=== PATIENT | male | born 1960 | race Caucasian/White ===

== ENCOUNTER 2018-06-11 09:15 | Emergency (ER) | payer BC ==
[~2018-06-11] VITALS: Ht 170.2 cm; Wt 84.1 kg
[2018-06-11 09:25] VITALS: Ht 170.2 cm; Wt 84.1 kg
[2018-06-11] MEDS ORDERED: FAMOTIDINE 20 MG INJ IV STA (09:25)
[2018-06-11] MEDS ORDERED: LIDOCAINE/MYLANTA 40 ML BTL PO STA (09:25)
[2018-06-11] MEDS ORDERED: ASPIRIN 81 MG TAB PO STA (09:25)
[2018-06-11] MEDS ORDERED: NITROGLYCERIN (SL) 0.4 MG TAB SL ONE (09:30)
[2018-06-11] MEDS ORDERED: ATEN50TA PO (09:52)
[2018-06-11] MEDS ORDERED: ASPI-903 PO (09:52)
[2018-06-11] MEDS ORDERED: LOSA1TAB28 PO (09:52)
--- NOTE | 2018-06-11 09:56 | ERD ---
ER Documentation Chief Complaint Chief Complaint AP WITH HTN HPI 58-year-old male history of hypertension is compliant with blood pressure medications who presents with epigastric abdominal pain. He states that last night after eating fried potatoes late at night he started to have epigastric abdominal discomfort. He also noted associated cramping of his left upper extremity. He states the symptoms have persisted through the night. He also notes his blood pressures in the 200 range. He denies any mid back pain, no migratory pain and no pain out of proportion. He denies any headache or vision changes. No chest pain or chest pressure. No nausea vomiting or diarrhea or constipation. During the patient's encounter translation services were utilized Language: Aremenian Source: In person ROS All systems reviewed and are negative except as per history of present illness. Medications Home Meds Active Scripts Famotidine* (Pepcid*) 20 Mg Tablet, 20 MG PO BID for 4 Days, TAB Prov:KRISTA DAUGHERTY MD 06/11/18 Reported Medications Losartan-Hydrochlorothiazide (Losartan-HCTZ) 100-12.5 Mg Tab, 1 TAB PO DAILY, TAB 06/11/18 Aspirin* (Aspirin* Chew) 81 Mg Tab.chew, 81 MG PO DAILY, TAB.CHEW 06/11/18 Atenolol* (Atenolol*) 50 Mg Tablet, 50 MG PO DAILY, #30 TAB 06/11/18 Allergies Allergies: Coded Allergies: No Known Allergy (Unverified , 06/11/18) PMhx/Soc Hx Alcohol Use: No Hx Substance Use: No Hx Tobacco Use: No Smoking Status: Never smoker FmHx Family History: No diabetes Physical Exam Vitals Vital Signs Date Temp Pulse Resp B/P (MAP) Pulse Ox O2 O2 Flow FiO2 Time Delivery Rate 06/11/18 68 18 165/85 99 Room Air 11:53 (111) 06/11/18 66 18 159/87 99 Room Air 11:50 (111) 06/11/18 64 20 197/91 99 Room Air 09:39 (126) 06/11/18 Nasal 2 09:30 Cannula 06/11/18 98.9 68 18 232/100 99 09:25 (144) Physical Exam General: Well developed, well nourished, no acute distress Head: Normocephalic, atraumatic. Eyes: Pupils equally reactive, EOM intact ENT: Moist mucous membranes Neck: Supple, no lymphadenopathy Respiratory: Lungs clear bilaterally, no distress Cardiovascular: RRR, no murmurs, rubs, or gallops Abdominal: Soft, non-tender, non-distended, no peritoneal signs, no pulsatile mass : Deferred MSK: No edema, no unilateral swelling, 5/5 strength, no pulse deficits Neurologic: Alert and oriented, moving all extremities, normal speech, no focal weakness, no cerebellar signs Skin: No rash Psych: Normal mood Result Diagram: 06/11/18 0932 06/11/18 0932 Results 24 hrs Laboratory Tests Test 06/11/18 09:32 06/11/18 12:30 White Blood Count 8.6 10^3/ul Red Blood Count 4.33 10^6/ul Hemoglobin 12.7 g/dl Hematocrit 37.0 % Mean Corpuscular Volume 85.5 fl Mean Corpuscular Hemoglobin 29.3 pg Mean Corpuscular Hemoglobin Concent 34.3 g/dl Red Cell Distribution Width 11.4 % Platelet Count 326 10^3/UL Mean Platelet Volume 10.4 fl Immature Granulocytes % 0.600 % Neutrophils % 63.3 % Lymphocytes % 21.1 % Monocytes % 9.5 % Eosinophils % 5.4 % Basophils % 0.1 % Nucleated Red Blood Cells % 0.0 /100WBC Immature Granulocytes # 0.050 10^3/ul Neutrophils # 5.5 10^3/ul Lymphocytes # 1.8 10^3/ul Monocytes # 0.8 10^3/ul Eosinophils # 0.5 10^3/ul Basophils # 0.0 10^3/ul Nucleated Red Blood Cells # 0.0 10^3/ul Sodium Level 139 mmol/L Potassium Level 4.4 mmol/L Chloride Level 102 mmol/L Carbon Dioxide Level 29 mmol/L Anion Gap 8 Blood Urea Nitrogen 13 mg/dl Creatinine 0.74 mg/dl Est Glomerular Filtrat Rate mL/min > 60 mL/min Glucose Level 135 mg/dl Calcium Level 9.4 mg/dl Total Bilirubin 0.5 mg/dl Direct Bilirubin 0.00 mg/dl Indirect Bilirubin 0.5 mg/dl Aspartate Amino Transf (AST/SGOT) 40 IU/L Alanine Aminotransferase (ALT/SGPT) 90 IU/L Alkaline Phosphatase 128 IU/L Troponin I < 0.012 ng/ml < 0.012 ng/ml Total Protein 7.4 g/dl Albumin 4.0 g/dl Globulin 3.40 g/dl Albumin/Globulin Ratio 1.17 Lipase 118 U/L Current Medications Medications Dose Sig/Adi Start Time Status Last (Trade) Ordered Route PRN Stop Time Admin Dose Reason Admin Aspirin 162 mg ONCE STAT 06/11/18 DC 06/11/18 (Aspirin) PO 09:25 09:45 06/11/18 09:28 Famotidine 20 mg ONCE STAT 06/11/18 DC 06/11/18 (Pepcid Iv) IV 09:25 09:44 06/11/18 09:28 40 ml ONCE STAT 06/11/18 DC 06/11/18 Miscellaneous PO 09:25 09:45 Medication 06/11/18 (Gi Cocktail 09:28 (2)) 1 tab ONCE ONCE 06/11/18 DC 06/11/18 Nitroglycerin SL 09:30 09:45 06/11/18 (Nitroglyceri 09:31 n (Sl Tab) 0.4 Mg) Procedures/MDM EKG, MONITORS, & DIAGNOSTIC IMAGING: EKG: I reviewed and interpreted a 12-lead EKG. Rhythm: Normal sinus rhythm ST Changes: No contiguous ST segment elevations T waves: No contiguous T wave inversions Impression: [No evidence of acute cardiac ischemia] Repeat EKG: EKG: I reviewed and interpreted a 12-lead EKG. Rhythm: Normal sinus rhythm ST Changes: No contiguous ST segment elevations T waves: No contiguous T wave inversions Impression: [No evidence of acute cardiac ischemia] Chest x-ray: I reviewed and interpreted a 1 view of the chest Mediastinum: No enlargement Cardiac silhouette: No cardiomegaly Airspace: Clear lung krishnan bilaterally without evidence of pneumothorax Bones: No evidence of fracture LAB INTERPRETATION: * Trop neg x 2 MEDICAL DECISION MAKING: The patient's history, physical exam and clinical presentation is concerning for possible cardiogenic etiology and acute coronary syndrome. However, his history fits more likely with GI process given postprandial symptoms after late fried food. The patient's blood pressure is significantly elevated but he denies any migratory pain. His blood pressure is improving. His clinical exam is not consistent with acute aortic dissection. His lung his chest x-ray shows normal mediastinum no indication for CTA of the chest. While I have a higher suspicion for GI process the patient is experiencing some arm discomfort which raises the concern for cardiac etiology warranting a workup. Based on the patient's clinical exam and history and risk factors, I have a much lower clinical concern for pulmonary embolism, acute aortic dissection, pne umothorax, pneumonia, cardiac tamponade HEART Score: 3 MACE Rate: 1.7% Shared Decision Making: We had a conversation regarding risk stratification, MACE rate, and the risks, benefits, alternatives of disposition planning options. Disposition planning: The patient adamantly does not want to be admitted. We discussed the risks involved including heart attack and cardiac arrest. The patient is agreeable to a 3-hour delta troponin which does fit in line with the HEART Pathway for early discharge in acute chest pain. ER COURSE: * ASA, NTG, and GI cocktail provided * Symptoms are improved. * Serial troponin is negative x2 * At this point the patient prefers discharge. He understands the risks involved. He understands my recommendation for hospitalization. He understands that he is leaving AGAINST MEDICAL ADVICE. Based on this understanding I do not feel strongly the patient feels that documentation. He is able to verbalize back to me the risk benefits and alternatives and has received serial troponins in the emergency room setting appropriate with standard of care. DISPOSITION PLAN: We discussed follow up with the patient's primary care doctor within 24 to 48 hours as needed. We also discussed return to the emergency room for worsening symptoms or worsening condition. Outpatient referral: PMD Discharge Medications: Pepcid Departure Diagnosis: Primary Impression: Chest pain Chest pain type: unspecified Qualified Codes: R07.9 - Chest pain, unspecified Additional Impression: Dyspepsia Condition: Stable KRISTA DAUGHERTY MD Jun 11, 2018 09:56
[2018-06-11 11:53] VITALS: BP 165/85; PULSE 68; RESP 18
[2018-06-11] MEDS ORDERED: FAMO-96 PO (13:21)
== END 2018-06-11 13:43 | disposition left against medical advice (07) ==
LOC: E/R 09:15
DX: R07.9 Chest pain, unspecified (principal); R40.2142 Coma scale, eyes open, spontaneous, at arrival to emergency department; R40.2362 Coma scale, best motor response, obeys commands, at arrival to emergency department; R40.2252 Coma scale, best verbal response, oriented, at arrival to emergency department; Z79.82 Long term (current) use of aspirin
CPT/HCPCS: 36415; 71045; 80053; 83690; 84484; 85025; 93005; 96374; Z7502; Z7610